=== PATIENT | male | born 1970 | race Caucasian/White ===

== ENCOUNTER 2016-10-20 17:20 | Inpatient (IN) | payer SELFPAY ==
[~2016-10-20] VITALS: Ht 177.8 cm; Wt 89.7 kg
[2016-10-20] MEDS ORDERED: ONDANSETRON 2MG/ML, 2ML IVPush ONE (18:00)
[2016-10-20] MEDS ORDERED: SODIUM CHLORIDE FLUSH 10ML SYR IVF ONE (18:00)
[2016-10-20] MEDS ORDERED: HYDROmorphone 1 MG/ML, 1ML IVPush PRN (18:00)
[2016-10-20] MEDS ORDERED: SODIUM CHLORIDE 0.9% 1,000ML IVBOLUS ONE (18:00)
[2016-10-20 18:20] LABS: ASPARTATE AMINO TRANSFERASE 38 U/L (15-37); BLOOD UREA NITROGEN 16 mg/dL (7-18)
[2016-10-20] MEDS ORDERED: HYDROmorphone 1 MG/ML, 1ML ONE (18:42)
[2016-10-20] MEDS ORDERED: ONDANSETRON 2MG/ML, 2ML ONE (18:42)
[2016-10-20 18:44] LABS: DIFF TOTAL CELLS COUNTED 100 CELL DIFF
[2016-10-20 18:46] LABS: VERIFY COUNTS? YES
[2016-10-20] MEDS ORDERED: SODIUM CHLORIDE FLUSH 10ML SYR IVF PRN (19:30)
[2016-10-20] MEDS ORDERED: CEFTRIAXONE PMX 1GM/50ML 50 ML IVPB ONE (19:30)
[2016-10-20] MEDS ORDERED: CEFTRIAXONE PMX 1GM/50ML 50 ML ONE (19:34)
[2016-10-20] MEDS ORDERED: VANCOMYCIN PMX 1GM/200ML 200 ML IV ONE (20:00)
[2016-10-20] MEDS ORDERED: VANCOMYCIN PER PHARMACY MC PRN (20:00)
[2016-10-20] MEDS ORDERED: POLYETHYLENE GLYCOL 17 GM PACKET PO PRN (20:30)
[2016-10-20] MEDS ORDERED: ENALAPRILAT 1.25 MG/ML, 2ML IVPush PRN (20:30)
[2016-10-20] MEDS ORDERED: ONDANSETRON 2MG/ML, 2ML IVPush PRN (20:30)
[2016-10-20] MEDS ORDERED: BISACODYL 10 MG SUPP PR PRN (20:30)
[2016-10-20] MEDS ORDERED: ACETAMINOPHEN 325 MG TABLET PO PRN (20:30)
[2016-10-20] MEDS ORDERED: hydrALAzine 20 MG/ML, 1ML IVPush PRN (20:30)
[2016-10-20] MEDS ORDERED: DOCUSATE 100 MG CAPSULE PO PRN (20:30)
[2016-10-20 21:00] VITALS: BP 130/98
[2016-10-20] MEDS: HEPARIN 5,000 UNITS/ML, 1ML SQ SCH (21:47)
[2016-10-20] MEDS: morphine SULFATE 10 MG/ML, 1ML IVPush PRN ×2 (21:47→22:18)
[2016-10-20] MEDS ORDERED: PHARMACOKINETIC CONSULTATION MC ONE (22:00)
[2016-10-20] MEDS ORDERED: PHARMACOKINETIC MONITORING MC PRN (22:00)
[2016-10-20] MEDS: VANCOMYCIN 1,700 MG in SODIUM CHLORIDE 0.9% 250 ML IV SCH (22:18)
[2016-10-21] MEDS: SODIUM CHLORIDE 0.9% 1,000 ML IV SCH ×3 (00:51→13:22)
[2016-10-21] MEDS: morphine SULFATE 10 MG/ML, 1ML IVPush PRN ×5 (01:35→20:13)
[2016-10-21 01:50] VITALS: BP 158/98
[2016-10-21 04:52] LABS: BLOOD UREA NITROGEN 18 mg/dL (7-18)
[2016-10-21 04:57] LABS: ASPARTATE AMINO TRANSFERASE 32 U/L (15-37)
[2016-10-21] MEDS: HEPARIN 5,000 UNITS/ML, 1ML SQ SCH ×3 (06:08→22:09)
[2016-10-21] MEDS: CEFTRIAXONE PMX 1GM/50ML 50 ML IV SCH ×2 (07:53→20:13)
[2016-10-21] MEDS: OXYcodone IR 5MG TABLET PO PRN ×3 (07:54→22:48)
[2016-10-21 09:00] VITALS: BP 153/96
[2016-10-21] MEDS: VANCOMYCIN 1,700 MG in SODIUM CHLORIDE 0.9% 250 ML IV SCH ×2 (10:05→22:08)
[2016-10-21 14:53] VITALS: BP 138/87
[2016-10-21 19:47] VITALS: BP 154/92
[2016-10-22 01:45] VITALS: BP 147/86
[2016-10-22] MEDS: morphine SULFATE 10 MG/ML, 1ML IVPush PRN ×4 (02:53→20:05)
[2016-10-22] MEDS: HEPARIN 5,000 UNITS/ML, 1ML SQ SCH ×3 (06:05→22:39)
[2016-10-22] MEDS: OXYcodone IR 5MG TABLET PO PRN ×4 (06:05→22:39)
[2016-10-22 07:34] VITALS: BP 138/93
[2016-10-22 07:44] LABS: ASPARTATE AMINO TRANSFERASE 55 U/L (15-37); BLOOD UREA NITROGEN 12 mg/dL (7-18)
[2016-10-22] MEDS: CEFTRIAXONE PMX 1GM/50ML 50 ML IV SCH ×2 (08:06→20:05)
[2016-10-22] MEDS: VANCOMYCIN 1,700 MG in SODIUM CHLORIDE 0.9% 250 ML IV SCH ×2 (10:54→22:40)
[2016-10-22 13:53] VITALS: BP 150/88
[2016-10-22 19:34] VITALS: BP 145/90
[2016-10-23 02:04] VITALS: BP 148/89
[2016-10-23] MEDS: morphine SULFATE 10 MG/ML, 1ML IVPush PRN ×3 (02:24→23:50)
[2016-10-23 05:46] LABS: BLOOD UREA NITROGEN 15 mg/dL (7-18)
[2016-10-23] MEDS: OXYcodone IR 5MG TABLET PO PRN ×4 (06:13→22:04)
[2016-10-23] MEDS: HEPARIN 5,000 UNITS/ML, 1ML SQ SCH ×3 (06:13→22:44)
[2016-10-23 06:37] VITALS: BP 132/86
[2016-10-23] MEDS ORDERED: AZITHROMYCIN 500 MG TABLET PO ONE (08:00)
[2016-10-23] MEDS: CEFTRIAXONE PMX 1GM/50ML 50 ML IV SCH ×2 (09:10→22:44)
[2016-10-23] MEDS: VANCOMYCIN 1,700 MG in SODIUM CHLORIDE 0.9% 250 ML IV SCH ×2 (11:30→23:50)
[2016-10-23 14:00] VITALS: BP 135/89
[2016-10-23] MEDS ORDERED: PNEUMOCOCCAL 23 VACCINE IM-VACC ONE (14:30)
[2016-10-23] MEDS: IBUPROFEN 200 MG TABLET PO PRN (14:38)
[2016-10-23 19:54] VITALS: BP 148/101
[2016-10-24 03:32] VITALS: BP 160/90
[2016-10-24] MEDS: IBUPROFEN 200 MG TABLET PO PRN (03:37)
[2016-10-24] MEDS: morphine SULFATE 10 MG/ML, 1ML IVPush PRN ×3 (03:43→16:58)
[2016-10-24] MEDS: HEPARIN 5,000 UNITS/ML, 1ML SQ SCH ×3 (06:39→22:16)
[2016-10-24] MEDS: OXYcodone IR 5MG TABLET PO PRN ×5 (06:44→23:48)
[2016-10-24 07:04] VITALS: BP 127/88
[2016-10-24] MEDS: CEFTRIAXONE PMX 1GM/50ML 50 ML IV SCH (08:36)
[2016-10-24] MEDS: VANCOMYCIN 1,700 MG in SODIUM CHLORIDE 0.9% 250 ML IV SCH (10:55)
[2016-10-24 12:30] VITALS: BP 165/89
[2016-10-24 19:16] VITALS: BP 120/72
[2016-10-24] MEDS: DOXYCYCLINE 100MG TABLET PO SCH (19:52)
[2016-10-25 01:26] VITALS: BP 140/81
[2016-10-25] MEDS: OXYcodone IR 5MG TABLET PO PRN ×2 (05:12→09:18)
[2016-10-25] MEDS: HEPARIN 5,000 UNITS/ML, 1ML SQ SCH (06:11)
[2016-10-25 07:12] VITALS: BP 138/97
[2016-10-25] MEDS: DOXYCYCLINE 100MG TABLET PO SCH (09:18)
[2016-10-25] MEDS ORDERED: DOXY100T PO (09:58)
[2016-10-25] MEDS ORDERED: OXYC-229 PO (09:58)
== END 2016-10-25 11:25 | disposition home or self-care (01) | DRG 872 ==
LOC: ED 19:32 → EDIP 19:38 → 3NE 21:00
PROVIDERS: ADMIT Internal Medicine; ATTEND Internal Medicine
DX: A41.9 Sepsis, unspecified organism (principal); N45.1 Epididymitis; F17.210 Nicotine dependence, cigarettes, uncomplicated; A74.9 Chlamydial infection, unspecified; I80.8 Phlebitis and thrombophlebitis of other sites; N43.3 Hydrocele, unspecified; Z91.041 Radiographic dye allergy status; Z90.81 Acquired absence of spleen
CPT/HCPCS: 36415; 76870; 80048; 80053; 80061; 80202; 81001; 83036; 83605; 83735; 84145; 84439; 84443; 85025; 87040; 87086; 87491; 87591; 90732; 96361; 96365; 96375; J0696; J1170; J1644; J2405; J3370; J2270; J7030; J7050